=== PATIENT | female | born 1980 | race Hispanic/Latino ===

== ENCOUNTER → 2018-08-04 | Outpatient (CLI) | payer MEDICAID | END | disposition home or self-care (01) | LOC: RAH 07:55 | PROVIDERS: ATTEND Family Medicine | DX: R92.1 Mammographic calcification found on diagnostic imaging of breast (principal) | CPT/HCPCS: 77066 ==

== ENCOUNTER 2018-11-15 11:49 | Emergency (ER) | payer MEDICAID ==
[2018-11-15] MEDS ORDERED: LIDOCAINE 5% TOPICAL PATCH TP ONE (12:28)
[2018-11-15] MEDS ORDERED: ACETAMINOPHEN EXTRA STRENGTH 500 MG TABLET ONE (12:29)
[2018-11-15] MEDS ORDERED: DIAZEPAM 5 MG TABLET ONE (12:29)
== END 2018-11-15 13:19 | disposition home or self-care (01) ==
LOC: EDH 11:49
DX: M54.5 Low back pain (principal)

== ENCOUNTER → 2021-11-26 | Outpatient (CLI) | payer MEDICAID | END | disposition home or self-care (01) | LOC: RAH 10:51 | PROVIDERS: ATTEND Family Medicine | DX: Z12.31 Encounter for screening mammogram for malignant neoplasm of breast (principal) | CPT/HCPCS: 77067 ==